=== PATIENT | male | born 1970 | race Caucasian/White ===

== ENCOUNTER 2025-03-10 10:16 | Emergency (ER) | payer BC, SELFPAY ==
[2025-03-10 10:24] VITALS: BP 168/101; PULSE 122; RESP 22; TEMP 36.4; O2SAT 98
[2025-03-10 10:31] VITALS: PULSE 91; O2SAT 97
--- NOTE | 2025-03-10 10:37 | ED.GENADULT ---
HPI - General Adult General Chief complaint: Extremity Problem,Nontraumatic Stated complaint: RT Arm Pain History of Present Illness HPI narrative: Dawson Bahena Is a 55-year-old male with past medical history of hypertension, diabetes and reported gout flare the past. He presents today with complaints having some right wrist pain earlier last week but related this to not wearing his wrist splint at night as he has carpal tunnel pain from working on computers daily. He then started to have some right elbow pain, and known right index finger pain. Pain is worse with movements denies any falls injury. Denies any fevers or chills. Related Data Allergies Allergy/AdvReac Type Severity Reaction Status Date / Time No Known Allergies Allergy Unverified 03/10/25 10:33 Review of Systems Review of Systems: All systems reviewed & are unremarkable except as noted in HPI and below Exam Narrative: GENERAL: Well-appearing, well-nourished, and in no acute distress. HEAD: Normocephalic, atraumatic. EYES: PERRLA and EOMI. ENT: Nares clear, no rhinorrhea or epistaxis. Mucous membranes moist. Oropharynx without tonsillar hypertrophy exudate or other lesions. NECK: Supple. No adenopathy or masses. No carotid bruits or JVD CHEST: Clear to auscultation. No respiratory distress. No wheezes rales or rhonchi HEART: Regular rate and rhythm. No murmur heard. Normal peripheral pulses. EXTREMITIES: + pain to right elbow slight erythema and swelling, + pain, erythema and swelling to the MCP joint of the right index phalanx SKIN: Warm, dry, no rash. NEURO: No focal deficits. Alert and oriented x3. PSYCH: Normal mood and affect. Course Course Level of Care: Express Care Visit Vital Signs Vital signs: Vital Signs Temperature 36.4 C L 03/10/25 10:24 Pulse Rate 122 H 03/10/25 10:24 Respiratory Rate 22 H 03/10/25 10:24 Blood Pressure 168/101 H 03/10/25 10:24 Pulse Oximetry 98 03/10/25 10:24 Oxygen Delivery Autopap 03/10/25 10:24 Temperature 36.4 C L 03/10/25 10:24 Pulse Rate 91 03/10/25 10:31 Respiratory Rate 22 H 03/10/25 10:24 Blood Pressure 168/101 H 03/10/25 10:24 Pulse Oximetry 97 03/10/25 10:31 Oxygen Delivery Room Air 03/10/25 10:31 Medical Decision Making MDM Narrative Medical decision making narrative: 55 y/o here with acute pain to right elbow and right index phalanx + pain to right elbow slight erythema and swelling, + pain, erythema and swelling to the MCP joint of the right index phalanx based on hx of gout this exam does seem consistent with gout flare Will start him on Indomethacin TID x5 days His b/p is elevated here and he states he has been without his medications for a few months and his PCP will not refill without seeing him first. I will refill his Lisinopril and Metformin as he is requesting and he mentions he wants a new PCP and he will be provided with information for a new one if he chooses [facility] PCP follow up recommended Return ER precautions provided, he voiced understanding and denies having any further questions or concerns. Medical Records Medical records reviewed: Yes I reviewed the external patient's medical records. Vital Signs Vital Signs: Vital Signs Temperature 36.4 C L 03/10/25 10:24 Pulse Rate 122 H 03/10/25 10:24 Respiratory Rate 22 H 03/10/25 10:24 Blood Pressure 168/101 H 03/10/25 10:24 Pulse Oximetry 98 03/10/25 10:24 Oxygen Delivery Autopap 03/10/25 10:24 Temperature 36.4 C L 03/10/25 10:24 Pulse Rate 91 03/10/25 10:31 Respiratory Rate 22 H 03/10/25 10:24 Blood Pressure 168/101 H 03/10/25 10:24 Pulse Oximetry 97 03/10/25 10:31 Oxygen Delivery Room Air 03/10/25 10:31 Vitals reviewed by me Discharge Plan Discharge Clinical Impression: Medication refill, Gout attack Patient Disposition: Home Condition: Stable Instructions: Antibiotic Form, Gout (ED), Hypertension (ED) Additional Instructions: Start taking the Indomethacin three times a day for 5 days I also refilled your Lisinopril and Metformin as requested, in the mean time please follow up or establish care with a new primary care provider to have your blood pressure and diabetes monitored. Your symptoms should improve with the Indomethacin, if you develop fevers, increased pain, increased swelling, or any other concerning symptoms proceed to the ER> Patient Language: [place] Prescriptions: New indomethacin 50 mg capsule 50 mg PO TID Qty: 15 0RF Rx Instructions: administer with food or milk Take three times a day for 5 days lisinopril 40 mg tablet 40 mg PO DAILY Qty: 30 1RF metformin 500 mg tablet 500 mg PO BID Qty: 60 1RF Follow-up/Referrals: Rajeev,Todd Reis MD [Primary Care Provider] - 1 Week Stand Alone Forms: Work/School Release IP Time of Disposition: 10:42
== END 2025-03-10 10:46 | disposition home or self-care (01) ==
PROVIDERS: Emergency Provider Nurse Practitioner Family; PCP Internal Medicine
DX: M10.9 Gout, unspecified (principal); Z76.0 Encounter for issue of repeat prescription; I10 Essential (primary) hypertension; E11.9 Type 2 diabetes mellitus without complications
CPT/HCPCS: 99202; 99203; G0463